=== PATIENT | female | born 1940 | race Caucasian/White ===

== ENCOUNTER 2017-08-12 14:18 | Emergency (ER) | payer MEDICARE ==
--- NOTE | 2017-08-12 15:30 | RAD ---
STERNUM TWO VIEWS: History: Chest injury. FINDINGS: Cortical irregularity involving the upper body of the sternum has the appearance of a minimally disp laced fracture, age indeterminate. POS: [facility]
--- NOTE | 2017-08-12 15:35 | RAD ---
CHEST TWO VIEWS: History: Trauma, chest injury. FINDINGS: Cardiac silhouette and pulmonary vasculature are unremarkable. Mediastinum is midline. There is no c onfluent airspace consolidation, pneumothorax, or pleural fluid apparent. Compression of the T12 shane tebral body is apparent on the lateral view with loss of height anteriorly by approximately 30%. Ost eophytosis is present throughout the thoracic spine. IMPRESSION: 1. No active cardiopulmonary abnormalities are demonstrated. 2. Partial wedge compression fracture of T12, age indeterminate. POS: [facility]
== END 2017-08-12 15:35 | disposition home or self-care (01) ==
LOC: SCSER 14:18
DX: S22.20XA Unspecified fracture of sternum, initial encounter for closed fracture (principal); M94.0 Chondrocostal junction syndrome [Tietze]; M48.54XD Collapsed vertebra, not elsewhere classified, thoracic region, subsequent encounter for fracture with routine healing; I25.10 Atherosclerotic heart disease of native coronary artery without angina pectoris; E78.5 Hyperlipidemia, unspecified; I10 Essential (primary) hypertension; F32.9 Major depressive disorder, single episode, unspecified; W22.09XA Striking against other stationary object, initial encounter; Y93.01 Activity, walking, marching and hiking
CPT/HCPCS: 71020; 71120; 93005

== ENCOUNTER 2017-10-02 10:10 | Outpatient (CLI) | payer MEDICARE ==
--- NOTE | 2017-10-02 13:01 | MMO ---
MAMMOGRAM DIGITAL SCREENING BILATERAL: DATE: 10/02/17 COMPARISON: 06/15/14 and 09/24/15. HISTORY: 73-year-old female for routine bilateral screening mammogram. TECHNIQUE: Digital mammographic views. Computer-aided detection (CAD) utilized. FINDINGS: The breasts are heterogeneously dense, which may obscure small masses. There is no evidence of suspicious mass, suspicious calcifications, or architectural distortion. The re is no significant interval change since the prior mammogram. IMPRESSION: 1. BIRADS 1: Negative 2. Recommendation: routine bilateral annual screening mammogram (unless the patient develops suspici ous clinical findings that would warrant earlier imaging follow up). rosalio [] POS: [facility]
== END 2017-10-02 10:11 | disposition home or self-care (01) ==
LOC: SCSMAMMO 10:10
PROVIDERS: ATTEND Family Medicine
DX: Z12.31 Encounter for screening mammogram for malignant neoplasm of breast (principal)
CPT/HCPCS: 77067; G0202

== ENCOUNTER 2018-01-17 10:59 | Outpatient (CLI) | payer MEDICARE ==
--- NOTE | 2018-01-17 14:19 | CT ---
CT CHEST WITH IV CONTRAST: HISTORY: Chest pain. Heart disease. FINDINGS: No comparison. Calcified granulomata are consistent with healed granulomatous disease. There is mil d dependent atelectasis. No lobar consolidation, parenchymal mass, pleural fluid, or pneumothorax. No enlarged lymph nodes are apparent within the mediastinum. Mild arterial calcification, including the coronary arteries. Within the partially visualized upper abdomen, cysts arise from the kidneys. IMPRESSION: 1. No acute abnormalities are demonstrated. 2. Atherosclerosis. POS: [facility]
== END 2018-01-17 11:00 | disposition home or self-care (01) ==
LOC: SCSCT 10:59
PROVIDERS: ATTEND Internal Medicine Cardiovascular Disease
DX: R00.2 Palpitations (principal); I25.119 Atherosclerotic heart disease of native coronary artery with unspecified angina pectoris
CPT/HCPCS: 71260; 82565

== ENCOUNTER 2018-02-21 12:22 | Outpatient (CLI) | payer MEDICARE ==
[~2018-02-21 12:22] MED LIST: Iopamidol 370 76% 100 ML VIAL ONE
--- NOTE | 2018-02-21 14:43 | CT ---
CHEST CT WITH CONTRAST: Date: 02/21/18 COMPARISON: 01/17/18. HISTORY: Sternal fracture. Heart palpitations. Angina pectoris. TECHNIQUE: Postcontrast chest CT is performed in the axial plane. Coronal reformatted images are submitted for i nterpretation. FINDINGS: No mediastinal mass, lymphadenopathy, or hematoma. Heart size is normal. No pericardial effusion. Tho racic aorta and upper abdominal aorta have an overall normal caliber. No periaortic fat stranding. Th ere are coronary artery calcifications. No significant pericardial fluid. Visualized upper solid organs are unremarkable. Multiple hypodensities in the left and right kidney a re redemonstrated and are favored to be cysts. No evidence of a lung parenchymal mass. No consolidation. No pleural effusion or pneumothorax. Depend ent atelectatic changes are noted. No lytic or blastic lesions within the osseous structures. There appears to be a chronic compression fracture at T12 level. There is associated end plate sclerosis. Based on the images provided, an obvi ous sternal fracture is not appreciated. IMPRESSION: 1. No significant interval change. Remote T12 fracture. 2. No obvious sternum fracture. POS: [facility]
== END 2018-02-21 12:23 | disposition home or self-care (01) ==
LOC: CT 12:22
PROVIDERS: ATTEND Internal Medicine Cardiovascular Disease
DX: R00.2 Palpitations (principal); I25.119 Atherosclerotic heart disease of native coronary artery with unspecified angina pectoris
CPT/HCPCS: 36415; 71260; 80053; 82565